=== PATIENT | female | born 1975 | race Hispanic/Latino ===

== ENCOUNTER 2019-01-24 13:32 | Emergency (ER) | payer BC ==
[~2019-01-24] VITALS: Ht 167.6 cm; Wt 72.6 kg
--- OUTSIDE RECORDS SUMMARY | 2019-01-24 13:34 | XMS REPORT | Clinical Summary ---
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 10/19/2018 traMADol (ULTRAM) 50 mg Take 1 tablet 12 tablet 0 tablet (50 mg total) 9 by mouth every 6 (six) hours as needed for Pain for up to 10 days. Max Daily Amount: 200 mg 10/19/2018 methocarbamol (ROBAXIN) Take 1 tablet 20 tablet 0 500 MG tablet (500 mg 9 total) by mouth 2 (two) times daily for 10 days. Active Problems Not on file Encounters Care Team Description Date Type Specialty Jose Pena MD Acute non intractable tension-type headache (Primary Dx); Dizziness; Blurry vision; Nausea; Lightheadedness 10/09/2018 Emergency Emergency Medicine after 01/23/2018 Social History Date Tobacco Use Types Packs/Day Years Used Never Smoker Smokeless Tobacco: Never Used Alcohol Use Drinks/Week oz/Week Comments Yes social Alcohol Habits Answer Date Recorded How often do you have a drink containing alcohol? Never 10/09/2018 How many drinks containing alcohol do you have on Not asked a typical day when you are drinking? How often do you have six or more drinks on one Not asked occasion? Sex Assigned at Date Recorded Not on file Industry Job Start Date Occupation Not on file Not on file Not on file Travel End Travel History Travel Start No recent travel history available. Last Filed Vital Signs Time Taken Vital Sign Reading 10/09/2018 2:34 PM CDT Blood Pressure 140/90 10/09/2018 2:34 PM CDT Pulse 80 10/09/2018 2:34 PM CDT Temperature 36.7 C (98.1 F) 10/09/2018 2:34 PM CDT Respiratory Rate 16 10/09/2018 2:34 PM CDT Oxygen Saturation 99% - Inhaled Oxygen - Concentration 10/09/2018 11:41 AM CDT Weight 81.6 kg (180 lb) - Height - - Body Mass Index - Plan of Treatment Not on file Procedures Comments Procedure Name Priority Date/Time Associated Diagnosis CBC W/PLT COUNT & AUTO STAT 10/09/2018 DIFFERENTIAL 12:02 PM CDT SCREEN, URINE STAT 10/09/2018 12:02 PM CDT URINALYSIS W/ MICROSCOPIC STAT 10/09/2018 12:02 PM CDT COMPREHENSIVE METABOLIC STAT 10/09/2018 PANEL 12:02 PM CDT CBC W/PLT COUNT & AUTO STAT 10/09/2018 DIFFERENTIAL 12:[address] BRAIN WITHOUT IV STAT 10/09/2018 CONTRAST 11:54 AM CDT after 01/23/2018 Results * CBC with platelet count + automated diff (10/09/2018 12:02 PM CDT) WBC 6.8 4.0 - 10.0 K/L [facility] RBC 4.83 4.00 - 5.00 M/L [facility] Hemoglobin 13.0 12.0 - 15.5 GM/DL [facility] Hematocrit 40.3 36.0 - 46.0 % [facility] MCV 83.4 82.0 - 99.0 fL [facility] MCH 26.9 (L) 27.0 - 33.0 pg [facility] MCHC 32.3 32.0 - 36.0 GM/DL [facility] RDW 13.1 12.0 - 15.0 % [facility] Platelets 293 150 - 430 K/CU MM [facility] MPV 10.2 6.0 - 11.5 fL [facility] nRBC 0 0 - 0 /100 WBC [facility] % Neutros 56 % [facility] % Lymphs 34 % [facility] % Monos 8 % [facility] % Eos 1 % [facility] % Baso 1 % [facility] # Neutros 3.81 1.80 - 8.00 K/L [facility] # Lymphs 2.26 1.48 - 4.50 K/L [facility] # Monos 0.56 0.00 - 1.30 K/L [facility] # Eos 0.06 0.00 - 0.50 K/L [facility] # Baso 0.04 0.00 - 0.20 K/L [facility] Immature 0 0 - 0 % [facility] Specimen Blood Performing Organization Address [facility] Phone Number [facility] [address] [place] [phone] * screen, urine (10/09/2018 12:02 PM CDT) Preg Test, Ur Negative [facility] Specimen Urine Performing Organization Address City/[facility] Phone Number [facility] [address] [place] [phone] * Urinalysis w/Microscopic (10/09/2018 12:02 PM CDT) Color, UA Yellow [facility] Clarity, UA Clear [facility] Specific [place], UA 1.020 1.001 - 1.035 [facility] pH, UA 6.5 5.0 - 8.0 [facility] Protein, UA Negative Negative [facility] Glucose, UA Negative Negative [facility] Ketones, UA Negative Negative [facility] Bilirubin, UA Negative Negative [facility] Blood, UA Negative Negative [facility] Nitrite, UA Negative Negative [facility] Leukocytes, UA Negative Negative [facility] Urobilinogen, UA 1.0 0.2 - 1.0 mg/dL [facility] Bacteria, UA Occasional [facility] Mucus Moderate [facility] RBC, UA <5 /HPF [facility] WBC, UA <5 /HPF [facility] SQUAMOUS EPITHELIAL <5 /HPF [facility] Specimen Source [facility] Specimen Urine Performing Organization Address City/[facility] Phone Number [facility] [address] [place] [phone] * Comprehensive metabolic panel (10/09/2018 12:02 PM CDT) Protein, Total 7.2Comment: Specimen slightly 6.0 - 8.5 gm/dL [facility] Albumin 4.0Comment: Specimen slightly 3.5 - 5.0 g/dL [facility] Alkaline Phosphatase 52 30 - 115 U/L [facility] Total Bilirubin 1.1Comment: Specimen slightly 0.1 - 1.2 mg/dL [facility] Sodium 140 135 - 148 meq/L [facility] Potassium 4.1Comment: Specimen slightly 3.6 - 5.5 meq/L [facility] Chloride 107 (H) 98 - 106 meq/L [facility] CO2 23 20 - 29 meq/L [facility] BUN 13 10 - 26 mg/dL [facility] Creatinine 0.65Comment: Specimen slightly 0.50 - 1.20 mg/dL [facility] Glucose 93 70 - 110 mg/dL [facility] Calcium 9.1 8.5 - 10.5 mg/dL [facility] AST 21Comment: Specimen slightly 5 - 40 U/L [facility] ALT 14Comment: Specimen slightly 5 - 50 U/L [facility] EGFR 99Comment: ESTIMATED GFR IS mL/min/1.73 sq m [facility] NOT ACCURATE CREATININE [facility] CLEARANCE IN PREDICTING GLOMERULAR FILTRATION RATE. ESTIMATED GFR IS NOT APPLICABLE FOR DIALYSIS PATIENTS. Specimen Blood Performing Organization Address City/State/Zipcode Phone Number [facility] [address] [place], [place] [phone] * CT brain without IV contrast (10/09/2018 11:54 AM CDT) Specimen Narrative Performed At FINAL REPORT [facility] CT Head without contrast CLINICAL HISTORY: HEADACHE DIZZINESS BLURRED VISION TECHNIQUE: Contiguous axial CT images through the head without contrast. This exam was performed according to the departmental dose optimization program which includes automated exposure control, adjustment of the mA and/or kV according to the patient size, and/or use of an iterative reconstruction technique. COMPARISON: None FINDINGS: There is no CT evidence of acute infarct or intracranial hemorrhage. There is no hydrocephalus, midline shift, or apparent mass effect. There are no extra-axial fluid collections. The skull is intact. The visualized paranasal sinuses are well-aerated. IMPRESSION: No CT evidence of acute infarct, hemorrhage, or hydrocephalus. Signed: Nawaf Kaplan MD Report Verified Date/Time:10/09/2018 12:03:14 Reading Location: [facility] C013V Neuro Reading Room Procedure Note Interface, External Ris In - 10/09/2018 12:05 PM CDT FINAL REPORT CT Head without contrast CLINICAL HISTORY: HEADACHE DIZZINESS BLURRED VISION TECHNIQUE: Contiguous axial CT images through the head without contrast. This exam was performed according to the departmental dose optimization program which includes automated exposure control, adjustment of the mA and/or kV according to the patient size, and/or use of an iterative reconstruction technique. COMPARISON: None FINDINGS: There is no CT evidence of acute infarct or intracranial hemorrhage. There is no hydrocephalus, midline shift, or apparent mass effect. There are no extra-axial fluid collections. The skull is intact. The visualized paranasal sinuses are well-aerated. IMPRESSION: No CT evidence of acute infarct, hemorrhage, or hydrocephalus. Signed: Nawaf Kaplan MD Report Verified Date/Time: 10/09/2018 12:03:14 Reading Location: [facility] C013 Neuro Reading Room Performing Organization Address City/State/Zipcode Phone Number GE RIS after 01/23/2018 Insurance Payer Benefit Subscriber ID Type Phone Address Plan / Group [facility] H[facility]/POS CARE POS SELECT CHOICE
--- OUTSIDE RECORDS SUMMARY | 2019-01-24 13:34 | XMS REPORT | Clinical Summary ---
Author Author [facility] Address Unknown Phone Unavailable Care Team Providers Care Bottom Polisher Name Role Phone Candace Daniel MD PCP Allergies Comments Active Allergy Reactions Severity Noted Date Throat swelling Promethazine Swelling 04/03/2017 Medications End Date Status Medication Sig Dispensed Refills Start Date Active escitalopram (LEXAPRO) 10 Take 10 mg by 0 MG tablet mouth daily. Active Problems Problem Noted Date Other chest pain 04/03/2017 Social History Date Tobacco Use Types Packs/Day Years Used Never Smoker Drinks/Week oz/Week Comments Alcohol Use Yes Sex Assigned at Date Recorded Not on file Industry Job Start Date Occupation Not on file Not on file Not on file Travel End Travel History Travel Start No recent travel history available. 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
--- OUTSIDE RECORDS SUMMARY | 2019-01-24 13:34 | XMS REPORT ---
Author Author [facility] Address Unknown Phone Unavailable Care Team Providers Care High Wire Artist Name Role Phone PRITI VASQUEZ Unavailable Unavailable Problems This patient has no known problems. Allergies, Adverse Reactions, Alerts This patient has no known allergies or adverse reactions. Medications This patient has no known medications. Results Test Description Test Time Test Comments Text Results Atomic Results Result Comments COMPREHENSIVE METABOLIC PANEL 2018-10-09 12:39:00 TOTAL PROTEIN (BEAKER) (test dqku=439) 7.2 gm/dL 6.0-8.5 Specimen slightly hemolyzed ALBUMIN (BEAKER) (test xzuo=7480) 4.0 g/dL 3.5-5.0 Specimen slightly hemolyzed ALKALINE PHOSPHATASE (BEAKER) (test dshx=967) 52 U/L 30-115 BILIRUBIN TOTAL (BEAKER) (test oiax=420) 1.1 mg/dL 0.1-1.2 Specimen slightly hemolyzed SODIUM (BEAKER) (test bhpv=213) 140 meq/L 135-148 POTASSIUM (BEAKER) (test dvtx=224) 4.1 meq/L 3.6-5.5 Specimen slightly hemolyzed CHLORIDE (BEAKER) (test frww=437) 107 meq/L 98-106 CO2 (BEAKER) (test rbwb=080) 23 meq/L 20-29 BLOOD UREA NITROGEN (BEAKER) (test fayx=871) 13 mg/dL 10-26 CREATININE (BEAKER) (test zbmd=941) 0.65 mg/dL 0.50-1.20 Specimen slightly hemolyzed GLUCOSE RANDOM (BEAKER) (test vklg=377) 93 mg/dL 70-110 CALCIUM (BEAKER) (test rcvn=894) 9.1 mg/dL 8.5-10.5 AST (SGOT) (BEAKER) (test mkmz=737) 21 U/L 5-40 Specimen slightly hemolyzed ALT (SGPT) (BEAKER) (test ztkr=507) 14 U/L 5-50 Specimen slightly hemolyzed EGFR (BEAKER) (test thws=6464) 99 mL/min/1.73 sq m ESTIMATED GFR IS NOT ACCURATE CREATININE CLEARANCE IN PREDICTING GLOMERULAR FILTRATION RATE. ESTIMATED GFR IS NOT APPLICABLE FOR DIALYSIS PATIENTS. SCREEN, [id number] 12:29:00* Test Item Value Reference Range Comments TEST URINE (BEAKER) (test mlka=711) Negative URINALYSIS W/ [id number] 12:27:00* Test Item Value Reference Range Comments COLOR (BEAKER) (test agxr=356) Yellow CLARITY (BEAKER) (test eygs=580) Clear SPECIFIC GRAVITY UA (BEAKER) (test owxc=103) 1.020 1.001-1.035 PH UA (BEAKER) (test vaut=521) 6.5 5.0-8.0 PROTEIN UA (BEAKER) (test yqac=780) Negative Negative GLUCOSE UA (BEAKER) (test vksw=937) Negative Negative KETONES UA (BEAKER) (test qemu=421) Negative Negative BILIRUBIN UA (BEAKER) (test pczb=482) Negative Negative BLOOD UA (BEAKER) (test kkik=489) Negative Negative NITRITE UA (BEAKER) (test zkvt=578) Negative Negative LEUKOCYTE ESTERASE UA (BEAKER) (test fxrs=532) Negative Negative UROBILINOGEN UA (BEAKER) (test pwju=925) 1.0 mg/dL 0.2-1.0 BACTERIA (BEAKER) (test jbql=891) Occasional MUCUS (BEAKER) (test sqer=5602) Moderate RBC UA-MANUAL (BEAKER) (test qqjo=8765) <5 /HPF WBC UA-MANUAL (BEAKER) (test txqz=1017) <5 /HPF SQUAMOUS EPITHELIAL MANUAL (BEAKER) (test hahg=3948) <5 /HPF SOURCE(BEAKER) (test jdbh=1136) CBC W/PLT COUNT & AUTO [id number] 12:13:00* Test Item Value Reference Range Comments WHITE BLOOD CELL COUNT (BEAKER) (test buvy=083) 6.8 K/ L 4.0-10.0 RED BLOOD CELL COUNT (BEAKER) (test wtdh=546) 4.83 M/ L 4.00-5.00 HEMOGLOBIN (BEAKER) (test paba=213) 13.0 GM/DL 12.0-15.5 HEMATOCRIT (BEAKER) (test eyyu=850) 40.3 % 36.0-46.0 MEAN CORPUSCULAR VOLUME (BEAKER) (test bcua=942) 83.4 fL 82.0-99.0 MEAN CORPUSCULAR HEMOGLOBIN (BEAKER) (test rjev=022) 26.9 pg 27.0-33.0 MEAN CORPUSCULAR HEMOGLOBIN CONC (BEAKER) (test ixjx=753) 32.3 GM/DL 32.0-36.0 RED CELL DISTRIBUTION WIDTH (BEAKER) (test ozxx=102) 13.1 % 12.0-15.0 PLATELET COUNT (BEAKER) (test dthh=686) 293 K/CU MM 150-430 MEAN PLATELET VOLUME (BEAKER) (test posn=125) 10.2 fL 6.0-11.5 NUCLEATED RED BLOOD CELLS (BEAKER) (test sogk=276) 0 /100 WBC 0-0 NEUTROPHILS RELATIVE PERCENT (BEAKER) (test sjul=716) 56 % LYMPHOCYTES RELATIVE PERCENT (BEAKER) (test fhch=415) 34 % MONOCYTES RELATIVE PERCENT (BEAKER) (test kqpw=565) 8 % EOSINOPHILS RELATIVE PERCENT (BEAKER) (test zgtn=124) 1 % BASOPHILS RELATIVE PERCENT (BEAKER) (test tvyf=344) 1 % NEUTROPHILS ABSOLUTE COUNT (BEAKER) (test fnkq=500) 3.81 K/ L 1.80-8.00 LYMPHOCYTES ABSOLUTE COUNT (BEAKER) (test wbed=441) 2.26 K/ L 1.48-4.50 MONOCYTES ABSOLUTE COUNT (BEAKER) (test wwbd=219) 0.56 K/ L 0.00-1.30 EOSINOPHILS ABSOLUTE COUNT (BEAKER) (test mewo=181) 0.06 K/ L 0.00-0.50 BASOPHILS ABSOLUTE COUNT (BEAKER) (test nkrf=805) 0.04 K/ L 0.00-0.20 IMMATURE GRANULOCYTES-RELATIVE PERCENT (BEAKER) (test sssr=8146) 0 % 0-0 CT, BRAIN, WITHOUT [id number] 12:03:00Reason for exam:-> HEADACHEHeadache, dizziness \T\ blurred vision x2 daysReason for exam:-> DIZZINESSReason for exam:->BLURRED VISIONIs the patient ?->UnknownWhat is the patient's sedation requirement?->No SedationFINAL REPORT CT Head without contrast CLINICAL HISTORY: HEADACHEDIZZINESSBLURRED VISION TECHNIQUE: Contiguous axial CT images through [...] infarct, hemorrhage, or hydrocephalus. Signed: Nawaf Kaplan Verified Date/Time: 10/09/2018 12:03:14 Reading Location: [facility] C013V Neuro Reading Room Electronically signed by: NAWAF KAPLAN M.D. on 2018 12:03 PM
[2019-01-24] MEDS ORDERED: ONDANSETRON HCL INJ 2MG/ML 2ML 2 MG/ML VIAL IV STA (14:15)
[2019-01-24] MEDS ORDERED: SODIUM CHLORIDE 0.9% 1000ML 1,000 ML IV STA (14:15)
[2019-01-24 14:30] LABS: BILIRUBIN,URINE NEGATIVE (NEGATIVE); CLARITY,URINE CLEAR (CLEAR); COLOR,URINE YELLOW (YELLOW); KETONES,URINE NEGATIVE (NEGATIVE); LEUKOCYTE ESTERASE ,URINE TRACE (NEGATIVE); NITRITE,URINE NEGATIVE (NEGATIVE); PROTEIN,URINE DIPSTICK NEGATIVE (NEGATIVE); URINE UROBILINOGEN 0.2 mg/dL (0.2 - 1)
[2019-01-24] MEDS ORDERED: ONDANSETRON HCL INJ 2MG/ML 2ML 2 MG/ML VIAL IV NR (14:30)
[2019-01-24 14:32] LABS: PREGNANCY TEST, URINE NEGATIVE (NEGATIVE)
[2019-01-24 14:45] LABS: BASOPHILS % 0.5 % (0.0-1.0); EOSINOPHILS # (AUTO) 0.1 (0.0-0.4); EOSINOPHILS % 1.1 % (0.0-6.0); HEMATOCRIT 37.1 % (34.2-44.1); HEMOGLOBIN 12.3 g/dL (12.0-16.0); LYMPHOCYTES # (AUTO) 2.2 (1.0-3.2); LYMPHOCYTES % 33.2 % (18.0-39.1); MEAN CORPUSCULAR HEMOGLOBIN 27.9 pg (28-32); MEAN CORPUSCULAR HGB CONC 33.2 g/dL (31-35); MEAN CORPUSCULAR VOLUME 84.1 fL (81-99); MONOCYTES # (AUTO) 0.5 (0.2-0.8); NEUTROPHILS # (AUTO) 3.7 (2.1-6.9); NEUTROPHILS % 56.9 % (38.7-80.0); PLATELET COUNT 255 x10e3/uL (140-360); RED BLOOD COUNT 4.41 x10e6/uL (3.6-5.1); RED CELL DISTRIBUTION WIDTH 12.7 % (11.7-14.4)
[2019-01-24] MEDS ORDERED: DICYCLOMINE HCL 20 MG/2 ML VIAL IM ONE (14:45)
[2019-01-24 14:51] LABS: AMORPHOUS SEDIMENT,URINE FEW (FEW); BACTERIA,URINE MODERATE /HPF; EPITHELIAL CELLS,URINE MODERATE /LPF; WBC,URINE (MAN) 0-5 /HPF (0-5)
[2019-01-24 15:05] LABS: ALANINE AMINOTRANSFERASE 8 IU/L (0-55); ALBUMIN 3.7 g/dL (3.5-5.0); ALBUMIN/GLOBULIN RATIO 1.3 (0.8-2.0); ALKALINE PHOSPHATASE 56 IU/L (40-150); ANION GAP 10.6 mmol/L (8-16); BLOOD UREA NITROGEN 11 mg/dL (7-26); BUN/CREATININE RATIO 15 (6-25); CALCIUM 9.5 mg/dL (8.4-10.2); CARBON DIOXIDE 28 mmol/L (22-29); CHLORIDE 103 mmol/L (98-107); CREATININE, SERUM 0.72 mg/dL (0.57-1.11); EST GLOMERULAR FILTRATION RATE > 60 ML/MIN (60-); GLUCOSE 101 mg/dL (74-118); POTASSIUM 3.6 mmol/L (3.5-5.1); SODIUM 138 mmol/L (136-145)
[2019-01-24] MEDS ORDERED: HYDROCODONE/APAP 7.5MG-325MG 1 EA TAB PO PRN (16:00)
[2019-01-24] MEDS ORDERED: KETOROLAC TROMETHAMINE 30 MG/ML VIAL IV NR (16:00)
--- NOTE | 2019-01-24 17:19 | Diagnostic Imaging Report ---
Pelvic ultrasound Clinical History: Lower abdominal pain Discussion: Sonographic evaluation of the pelvis is performed transabdominally and transvaginally. The uterus is 7.8 x 3.9 x 5.9 cm and demonstrates homogeneous echotexture, without focal mass. The endometrial echocomplex is homogeneous and measures 5mm. The ovaries have normal size and appearance. The right ovary measures 2.1 x 1.6 x 1.6 cm. The left ovary measures 2.2 x 1.9 x 2.1 cm. No free fluid is identified in the area scanned. Impression: Normal pelvic ultrasound evaluation. Signed by: Dr. Chang Galeano MD on 01/24/2019 5:15 PM
== END 2019-01-24 18:22 | disposition home or self-care (01) ==
LOC: ER 13:32
DX: R10.30 Lower abdominal pain, unspecified (principal); R11.2 Nausea with vomiting, unspecified
CPT/HCPCS: 36415; 76856; 80053; 81001; 81025; 84702; 85025; 87086; 99284; J0500; J1885; J2405; J7030